=== PATIENT | female | born 1995 | race American Indian/Alaskan Native ===

== ENCOUNTER 2021-02-14 06:35 | Emergency (ER) | payer MEDICAID, OTHER ==
[2021-02-14] MEDS ORDERED: ONDANSETRON 4 MG ODT TAB ONE (08:56)
[2021-02-14] MEDS ORDERED: ONDANSETRON 4 MG ODT TAB PO ONE (08:58)
[2021-02-14 09:00] VITALS: BP 126/85
[2021-02-14 09:31] LABS: Hematocrit 43.1 % (30.3-42.9); Hemoglobin 14.7 gm/dl (10.1-14.3); Mean Corpuscular HGB Conc 34 % (30-34); Mean Corpuscular Volume 89 fl (79-97); Platelet Count 227 K/mm3 (140-440); Red Blood Count 4.86 M/mm3 (3.65-5.03); Red Cell Distribution Width 13.8 % (13.2-15.2)
[2021-02-14 09:48] LABS: Alanine Aminotransferase 13 units/L (7-56); Albumin 5.2 g/dL (3.9-5); Blood Urea Nitrogen 18 mg/dL (7-17); Calcium 10.6 mg/dL (8.4-10.2); Hemolysis Index 12
[2021-02-14 09:52] LABS: BUN/Creatinine Ratio 26
[2021-02-14] MEDS ORDERED: SODIUM CHLORIDE 0.9% 1000 ML 1,000 ML IV ONE (10:54)
[2021-02-14] MEDS ORDERED: ONDANSETRON 4 MG/2 ML INJ IV ONE (10:54)
[2021-02-14] MEDS ORDERED: MORPHINE 4 MG/1 ML INJ IV ONE (10:54)
--- NOTE | 2021-02-14 10:58 | Emergency Department Report ---
ED General Adult HPI - General Chief complaint: Abdominal Pain Stated complaint: CHEST PAIN Time Seen by Provider: 02/14/21 10:30 Source: patient Mode of arrival: Ambulatory Limitations: No Limitations - History of Present Illness Initial comments: Patient is a 25-year-old female presents emergency room with complaints of lower abdominal pain that began last night. She has associated nausea and vomiting. States that she has had constant vomiting since approximately 1 AM this morning. States that she has not been able to tolerate any p.o. intake. Patient states that she had a D&C approximately 3 weeks ago. She states that since the D&C she has been having a foul odor vaginal discharge. She denies any diarrhea, hematochezia, melena, hematemesis, urinary symptoms, itching or burning. Past medical history of diverticulitis. No allergies to medications. - Related Data Previous Rx's Medication Instructions Recorded Last Taken Type Doxycycline Hyclate [Doxycycline 100 mg PO BID 14 Days #28 tab 02/14/21 Unknown Rx Hyclate TAB] Ondansetron [Zofran Odt] 4 mg PO Q8HR PRN #12 tab.rapdis 02/14/21 Unknown Rx metroNIDAZOLE [Flagyl] 500 mg PO BID 14 Days #28 tab 02/14/21 Unknown Rx traMADoL [Ultram 50 MG tab] 50 mg PO Q6HR PRN #12 tablet 02/14/21 Unknown Rx Allergies Allergy/AdvReac Type Severity Reaction Status Date / Time No Known Allergies Allergy Unverified 02/14/21 08:55 ED Review of Systems ROS: Stated complaint: CHEST PAIN Other details as noted in HPI Comment: All other systems reviewed and negative ED Past Medical Hx - Past Medical History Previous Medical History?: Yes Additional medical history: Diverticulitis - Surgical History Past Surgical History?: Yes Additional Surgical History: 01/21/21 - Medications Home Medications: Home Medications Medication Instructions Recorded Confirmed Last Taken Type Doxycycline Hyclate [Doxycycline 100 mg PO BID 14 Days #28 tab 02/14/21 Unknown Rx Hyclate TAB] Ondansetron [Zofran Odt] 4 mg PO Q8HR PRN #12 tab.rapdis 02/14/21 Unknown Rx metroNIDAZOLE [Flagyl] 500 mg PO BID 14 Days #28 tab 02/14/21 Unknown Rx traMADoL [Ultram 50 MG tab] 50 mg PO Q6HR PRN #12 tablet 02/14/21 Unknown Rx ED Physical Exam - General Limitations: No Limitations General appearance: alert, in no apparent distress - Head Head exam: Present: atraumatic, normocephalic - Eye Eye exam: Present: normal appearance - ENT ENT exam: Present: mucous membranes moist - Respiratory Respiratory exam: Present: normal lung sounds bilaterally. Absent: respiratory distress, wheezes, rales, rhonchi, stridor, chest wall tenderness, accessory muscle use, decreased breath sounds, prolonged expiratory - Cardiovascular Cardiovascular Exam: Present: regular rate, normal rhythm, normal heart sounds. Absent: systolic murmur, diastolic murmur, rubs, gallop - GI/Abdominal GI/Abdominal exam: Present: soft, tenderness (LLQ abd pain ), normal bowel sounds. Absent: distended, guarding, rebound, rigid - External exam: Present: normal external exam, other (lining cleaner: EDWARD Pfeiffer). Absent: erythema, swelling, lesions, lacerations, ecchymosis, bleeding Speculum exam: Present: vaginal discharge (clear), cervical discharge (clear). Absent: erythema, vaginal bleeding, foreign body, tissue, laceration Bi-manual exam: Present: normal bi-manual exam. Absent: cervical motion tendernes, adnexal tenderness, adnexal mass - Neurological Exam Neurological exam: Present: alert, oriented X3 - Psychiatric Psychiatric exam: Present: normal affect, normal mood - Skin Skin exam: Present: warm, dry, intact ED Course Vital Signs 02/14/21 08:59 Temperature 97.8 F Pulse Rate 55 L Respiratory 16 Rate Blood Pressure 126/85 [Right] O2 Sat by Pulse 98 Oximetry - EJ/Peripheral Line Arm L Time Out Performed: Yes Indications: other (pt needs IV meds and CT scan, nurse is unavailable due to staffing) Skin Cleansed in Sterile Fashion: Yes Size: 20 Dressing Placed: Tegaderm, tape Patient Tolerated Procedure: well, no complications ED Medical Decision Making - Lab Data Result diagrams: 02/14/21 09:09 02/14/21 09:09 Lab Results 02/14/21 02/14/21 02/14/21 Range/Units 09:09 09:09 09:09 WBC 17.0 H (4.5-11.0) K/mm3 RBC 4.86 (3.65-5.03) M/mm3 Hgb 14.7 H (10.1-14.3) gm/dl Hct 43.1 H (30.3-42.9) % MCV 89 (79-97) fl MCH 30 (28-32) pg MCHC 34 (30-34) % RDW 13.8 (13.2-15.2) % Plt Count 227 (140-440) K/mm3 Add Manual Diff Complete Total Counted 100 Seg Neutrophils % Income Tax Administrator Seg Neuts % (Manual) 92.0 H (40.0-70.0) % Lymphocytes % (Manual) 7.0 L (13.4-35.0) % Monocytes % (Manual) 1.0 (0.0-7.3) % Nucleated RBC % Not Reportable Seg Neutrophils # Man 15.6 H (1.8-7.7) K/mm3 Band Neutrophils # 0.0 K/mm3 Lymphocytes # (Manual) 1.2 (1.2-5.4) K/mm3 Abs React Lymphs (Man) 0.0 K/mm3 Monocytes # (Manual) 0.2 (0.0-0.8) K/mm3 Eosinophils # (Manual) 0.0 (0.0-0.4) K/mm3 Basophils # (Manual) 0.0 (0.0-0.1) K/mm3 Metamyelocytes # 0.0 K/mm3 Myelocytes # 0.0 K/mm3 Promyelocytes # 0.0 K/mm3 Blast Cells # 0.0 K/mm3 WBC Morphology Not Reportable Hypersegmented Neuts Not Reportable Hyposegmented Neuts Not Reportable Hypogranular Neuts Not Reportable Smudge Cells Not Reportable Toxic Granulation Not Reportable Toxic Vacuolation Not Reportable Dohle Bodies Not Reportable Pelger-Huet Anomaly Not Reportable Ganesh Rods Not Reportable Platelet Estimate Consistent w auto Clumped Platelets Not Reportable Plt Clumps, EDTA Not Reportable Large Platelets Not Reportable Giant Platelets Not Reportable Platelet Satelliting Not Reportable Plt Morphology Comment Not Reportable RBC Morphology Normal Dimorphic RBCs Not Reportable Polychromasia Not Reportable Hypochromasia Not Reportable Poikilocytosis Not Reportable Anisocytosis Not Reportable Microcytosis Not Reportable Macrocytosis Not Reportable Spherocytes Not Reportable Pappenheimer Bodies Not Reportable Sickle Cells Not Reportable Target Cells Not Reportable Tear Drop Cells Not Reportable Ovalocytes Not Reportable Helmet Cells Not Reportable [place] Bodies Not Reportable [place] Rings Not Reportable [place] Cells Not Reportable Bite Cells Not Reportable Crenated Cell Not Reportable Elliptocytes Not Reportable Acanthocytes (Spur) Not Reportable Rouleaux Not Reportable Hemoglobin C Crystals Not Reportable Schistocytes Not Reportable Malaria parasites Not Reportable Judson Bodies Not Reportable Hem Pathologist Commnt No Sodium 141 (137-145) mmol/L Potassium 3.7 (3.6-5.0) mmol/L Chloride 100.6 (98-107) mmol/L Carbon Dioxide 21 L (22-30) mmol/L Anion Gap 23 mmol/L BUN 18 H (7-17) mg/dL Creatinine 0.7 (0.6-1.2) mg/dL Estimated GFR > 60 ml/min BUN/Creatinine Ratio 26 % Glucose 138 H (65-100) mg/dL Calcium 10.6 H (8.4-10.2) mg/dL Total Bilirubin 1.10 (0.1-1.2) mg/dL AST 17 (5-40) units/L ALT 13 (7-56) units/L Alkaline Phosphatase 90 (35-129) units/L Troponin T (0.00-0.029) ng/mL Total Protein 8.1 (6.3-8.2) g/dL Albumin 5.2 H (3.9-5) g/dL Albumin/Globulin Ratio 1.8 % HCG, Qual TNR Urine Color (Yellow) Urine Turbidity (Clear) Urine pH (5.0-7.0) Ur [place] (1.003-1.030) Urine Protein (Negative) mg/dL Urine Glucose (UA) (Negative) mg/dL Urine Ketones (Negative) mg/dL Urine Blood (Negative) Urine Nitrite (Negative) Urine Bilirubin (Negative) Urine Urobilinogen (<2.0) mg/dL Ur Leukocyte Esterase (Negative) Urine WBC (Auto) (0.0-6.0) /HPF Urine RBC (Auto) (0.0-6.0) /HPF U Epithel Cells (Auto) (0-13.0) /HPF Urine Mucus /HPF 02/14/21 02/14/21 Range/Units 11:25 Unknown WBC (4.5-11.0) K/mm3 RBC (3.65-5.03) M/mm3 Hgb (10.1-14.3) gm/dl Hct (30.3-42.9) % MCV (79-97) fl MCH (28-32) pg MCHC (30-34) % RDW (13.2-15.2) % Plt Count (140-440) K/mm3 Add Manual Diff Total Counted Seg Neutrophils % Seg Neuts % (Manual) (40.0-70.0) % Lymphocytes % (Manual) (13.4-35.0) % Monocytes % (Manual) (0.0-7.3) % Nucleated RBC % Seg Neutrophils # Man (1.8-7.7) K/mm3 Band Neutrophils # K/mm3 Lymphocytes # (Manual) (1.2-5.4) K/mm3 Abs React Lymphs (Man) K/mm3 Monocytes # (Manual) (0.0-0.8) K/mm3 Eosinophils # (Manual) (0.0-0.4) K/mm3 Basophils # (Manual) (0.0-0.1) K/mm3 Metamyelocytes # K/mm3 Myelocytes # K/mm3 Promyelocytes # K/mm3 Blast Cells # K/mm3 WBC Morphology Hypersegmented Neuts Hyposegmented Neuts Hypogranular Neuts Smudge Cells Toxic Granulation Toxic Vacuolation Dohle Bodies Pelger-Huet Anomaly Ganesh Rods Platelet Estimate Clumped Platelets Plt Clumps, EDTA Large Platelets Giant Platelets Platelet Satelliting Plt Morphology Comment RBC Morphology Dimorphic RBCs Polychromasia Hypochromasia Poikilocytosis Anisocytosis Microcytosis Macrocytosis Spherocytes Pappenheimer Bodies Sickle Cells Target Cells Tear Drop Cells Ovalocytes Helmet Cells [place]illi[place] Bodies [place] Rings [place] Cells Bite Cells Crenated Cell Elliptocytes Acanthocytes (Spur) Rouleaux Hemoglobin C Crystals Schistocytes Malaria parasites Judson Bodies Hem Pathologist Commnt Sodium (137-145) mmol/L Potassium (3.6-5.0) mmol/L Chloride (98-107) mmol/L Carbon Dioxide (22-30) mmol/L Anion Gap mmol/L BUN (7-17) mg/dL Creatinine (0.6-1.2) mg/dL Estimated GFR ml/min BUN/Creatinine Ratio % Glucose (65-100) mg/dL Calcium (8.4-10.2) mg/dL Total Bilirubin (0.1-1.2) mg/dL AST (5-40) units/L ALT (7-56) units/L Alkaline Phosphatase (35-129) units/L Troponin T < 0.010 (0.00-0.029) ng/mL Total Protein (6.3-8.2) g/dL Albumin (3.9-5) g/dL Albumin/Globulin Ratio % HCG, Qual Urine Color Yellow (Yellow) Urine Turbidity Slightly-cloudy (Clear) Urine pH 5.0 (5.0-7.0) Ur [place] 1.024 (1.003-1.030) Urine Protein 100 mg/dl (Negative) mg/dL Urine Glucose (UA) 50 (Negative) mg/dL Urine Ketones 80 (Negative) mg/dL Urine Blood Neg (Negative) Urine Nitrite Neg (Negative) Urine Bilirubin Neg (Negative) Urine Urobilinogen < 2.0 (<2.0) mg/dL Ur Leukocyte Esterase Neg (Negative) Urine WBC (Auto) 2.0 (0.0-6.0) /HPF Urine RBC (Auto) 1.0 (0.0-6.0) /HPF U Epithel Cells (Auto) 11.0 (0-13.0) /HPF Urine Mucus 2+ /HPF - Radiology Data Radiology results: report reviewed Ordering Physician: HOLLY MCCOY Date of Service: 02/14/21 Procedure(s): CT abdomen pelvis w con Accession Number(s): [id number] cc: HOLLY MCCOY CT ABDOMEN AND PELVIS WITH CONTRAST INDICATION: LLQ abd pain, n/v, elevated WBC, recent DNC OMNI 300 100ML. TECHNIQUE: Axial CT images were obtained through the abdomen and pelvis after 100 cc IV contrast. All CT scans at this location are performed using CT dose reduction for ALARA by means of automated exposure control. COMPARISON: None available. FINDINGS: LOWER CHEST: No significant abnormality. LIVER: No significant abnormality. GALLBLADDER: No significant abnormality. BILE DUCTS: No significant abnormality. PANCREAS: No significant abnormality. SPLEEN: No significant abnormality. ADRENALS: No significant abnormality. RIGHT KIDNEY and URETER: No significant abnormality. LEFT KIDNEY and URETER: No significant abnormality. STOMACH and SMALL BOWEL: No significant abnormality. COLON: No significant abnormality. APPENDIX: No significant abnormality. PERITONEUM: No free fluid. No free air. No fluid collection. LYMPH NODES: No significant adenopathy. AORTA and ARTERIES: No significant abnormality. IVC and VEINS: No significant abnormality. URINARY BLADDER: No significant abnormality. REPRODUCTIVE ORGANS: 1.4 cm right ovarian follicular cyst. Small amount of fluid within the endometrial canal. No endometrial gas. ADDITIONAL FINDINGS: None. SKELETAL SYSTEM: No significant abnormality. IMPRESSION: 1. Small amount of endometrial fluid status post reported recent D and C. Pelvic ultrasound may be useful for further evaluation. 2. No acute inflammatory process or bowel obstruction Signer Name: Kedar Obando MD Signed: 02/14/2021 11:32 AM Workstation Name: [id number] Transcribed By: TL Dictated By: Kedar Obando MD Electronically Authenticated By: Kedar Obando MD Signed Date/Time: 02/14/21 1132 DD/ 1128 TD/TT: Print Ordering Physician: HOLLY MCCOY Date of Service: 02/14/21 Procedure(s): US transvaginal Accession Number(s): [id number] cc: HOLLY MCCOY ULTRASOUND PELVIS INDICATION: abd pain, WBC 17k, DNC 3 weeks ago. TECHNIQUE: Transabdominal and Transvaginal. Duplex Color Doppler used: Yes. COMPARISON: CT pelvis today FINDINGS: Uterus: Present. Size: 10.0 x 3.5 x 4.3 cm. Endometrial complex: Thickened and echogenic with small amount of endometrial fluid. measuring 11 mm. Mass lesions: None. Additional findings: None. Right Ovary -- Normal. Blood flow: Normal. Cyst or mass: 2.5 x 1.3 x 1.2 cm right ovarian follicular cyst Left Ovary--not visualized secondary to bowel gas Urinary Bladder: Normal. Free Fluid: None. Additional Findings: None. IMPRESSION: 1. Thickened endometrium with small amount of endometrial fluid. Mild endom etritis cannot be excluded. 2. 2.5 cm right ovarian follicular cyst. No free fluid. Signer Name: Kedar Obando MD Signed: 02/14/2021 1:15 PM Workstation Name: [id number] Transcribed By: TL Dictated By: Kedar Obando MD Electronically Authenticated By: Kedar Obando MD Signed Date/Time: 02/14/211314 DD/ 11 TD/TT: Print Cancel - Medical Decision Making Patient is a 25-year-old female presents emergency room with complaints of lower abdominal pain that began last night. She has associated nausea and vomiting. States that she has had constant vomiting since approximately 1 AM this morning. States that she has not been able to tolerate any p.o. intake. Patient states that she had a D&C approximately 3 weeks ago. She states that since the D&C she has been having a foul odor vaginal discharge. She denies any diarrhea, hematochezia, melena, hematemesis, urinary symptoms, itching or burning. Past medical history of diverticulitis. No allergies to medications. Vitals are stable. On exam patient has left lower quadrant tenderness palpation, no guarding, no rebound, no rigidity, no bowel sounds, no peritoneal signs, there is clear vaginal/cervical discharge on chaperoned pelvic examination, no CMT, no adnexal masses or tenderness. Labs significant for elevated white blood cell count of 17,000 and elevated blood glucose at 138. UA shows evidence of dehydration, no signs of UTI. Wet prep is negative. G/C swab sent. CT abdomen pelvis with IV contrast: 1. Small amount of endometrial fluid status post reported recent D and C. Pelvic ultrasound may be useful for further evaluation. 2. No acute inflammatory process or bowel obstruction. Pelvic ultrasound: 1. Thickened endometrium with small amount of endometrial fluid. Mild endometritis cannot be excluded. 2. 2.5 cm right ovarian follicular cyst. No free fluid. Patient given medications while in the emergency department with improvement of her symptoms. She was able to tolerate p.o. intake without difficulty. She had no further episodes of vomiting. Patient given ceftriaxone while in the emergency department. Discussed case with Dr. Viji Solorzano, ER attending who advised to have patient follow-up outpatient and to give prescriptions to treat endometritis and advised that does not need admission at this time. Patient given prescription for medications. Advised patient Take medication as prescribed to completion. Please follow-up with a primary care doctor. Please discuss with your primary care doctor about the elevation in your blood sugar during today's visit. Eat a low sugar/low carbohydrate diet. Follow-up with the clinic which performed your procedure. Return to emergency room for any new or worsening symptoms. Critical care attestation.: If time is entered above; I have spent that time in minutes in the direct care of this critically ill patient, excluding procedure time. ED Disposition Clinical Impression: Lower abdominal pain, Endometritis, Elevated blood sugar level Leukocytosis Qualifiers: Leukocytosis type: unspecified Qualified Code(s): D72.829 - Elevated white blood cell count, unspecified Ovarian cyst Qualifiers: Laterality: right Qualified Code(s): N83.201 - Unspecified ovarian cyst, right side Disposition: DC- TO HOME OR SELFCARE Is pt being admited?: No Does the pt Need Aspirin: No Condition: Stable Instructions: Endometritis, Abdominal Pain (ED) Additional Instructions: Take medication as prescribed to completion. Please follow-up with a primary care doctor. Please discuss with your primary care doctor about the elevation in your blood sugar during today's visit. Eat a low sugar/low carbohydrate diet. Follow-up with the clinic which performed your procedure. Return to emergency room for any new or worsening symptoms. Prescriptions: Doxycycline Hyclate [Doxycycline Hyclate TAB] 100 mg PO BID 14 Days #28 tab metroNIDAZOLE [Flagyl] 500 mg PO BID 14 Days #28 tab traMADoL [Ultram 50 MG tab] 50 mg PO Q6HR PRN #12 tablet PRN Reason: Pain , Severe (7-10) Ondansetron [Zofran Odt] 4 mg PO Q8HR PRN #12 tab.rapdis PRN Reason: nausea/vomiting Referrals: [facility] [Provider Group] - 2-3 Days HERB COWAN MD [Staff Physician] - 2-3 Days your, clinic [Other] - 2-3 Days Time of Disposition: 14:48 Print Language: SLOVENIAN
--- NOTE | 2021-02-14 11:36 | Cat Scan Report ---
CT ABDOMEN AND PELVIS WITH CONTRAST INDICATION: LLQ abd pain, n/v, elevated WBC, recent DNC OMNI 300 100ML. TECHNIQUE: Axial CT images were obtained through the abdomen and pelvis after 100 cc IV contrast. All CT scans at this location are performed using CT dose reduction for ALARA by means of automated exposure contr ol. COMPARISON: None available. FINDINGS: LOWER CHEST: No significant abnormality. LIVER: No significant abnormality. GALLBLADDER: No significant abnormality. BILE DUCTS: No significant abnormality. PANCREAS: No significant abnormality. SPLEEN: No significant abnormality. ADRENALS: No significant abnormality. RIGHT KIDNEY and URETER: No significant abnormality. LEFT KIDNEY and URETER: No significant abnormality. STOMACH and SMALL BOWEL: No significant abnormality. COLON: No significant abnormality. APPENDIX: No significant abnormality. PERITONEUM: No free fluid. No free air. No fluid collection. LYMPH NODES: No significant adenopathy. AORTA and ARTERIES: No significant abnormality. IVC and VEINS: No significant abnormality. URINARY BLADDER: No significant abnormality. REPRODUCTIVE ORGANS: 1.4 cm right ovarian follicular cyst. Small amount of fluid within the endometri al canal. No endometrial gas. ADDITIONAL FINDINGS: None. SKELETAL SYSTEM: No significant abnormality. IMPRESSION: 1. Small amount of endometrial fluid status post reported recent D and C. Pelvic ultrasound may be us eful for further evaluation. 2. No acute inflammatory process or bowel obstruction Signer Name: Kedar Obando MD Signed: 02/14/2021 11:32 AM Workstation Name: [id number]
[2021-02-14 11:37] LABS: Total Cells Counted 100
[2021-02-14 11:38] LABS: Platelet Estimate Consistent w Auto; RBC Morphology Normal
[2021-02-14 13:03] LABS: Bilirubin,Urine NEG (Negative); Blood,Urine NEG (Negative); Color,Urine Yellow (Yellow); Mucus,Urine 2+ /HPF; Urobilinogen,Urine < 2.0 mg/dL (<2.0)
--- NOTE | 2021-02-14 13:19 | Ultrasound Report ---
ULTRASOUND PELVIS INDICATION: abd pain, WBC 17k, DNC 3 weeks ago. TECHNIQUE: Transabdominal and Transvaginal. Duplex Color Doppler used: Yes. COMPARISON: CT pelvis today FINDINGS: Uterus: Present. Size: 10.0 x 3.5 x 4.3 cm. Endometrial complex: Thickened and echogenic with small amount of endometrial fluid. measuring 11 mm. Mass lesions: None. Additional findings: None. Right Ovary -- Normal. Blood flow: Normal. Cyst or mass: 2.5 x 1.3 x 1.2 cm right ovarian follicular cyst Left Ovary--not visualized secondary to bowel gas Urinary Bladder: Normal. Free Fluid: None. Additional Findings: None. IMPRESSION: 1. Thickened endometrium with small amount of endometrial fluid. Mild endometritis cannot be excluded . 2. 2.5 cm right ovarian follicular cyst. No free fluid. Signer Name: Kedar Obando MD Signed: 02/14/2021 1:15 PM Workstation Name: [id number]
[2021-02-14] MEDS ORDERED: AZITHROMYCIN 250 MG TAB PO ONE (14:44)
--- NOTE | 2021-02-15 14:30 | Electrocardiograph Report ---
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
--- NOTE | 2021-02-15 14:31 | Electrocardiograph Report ---
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
== END 2021-02-14 16:30 | disposition home or self-care (01) ==
LOC: ED 06:35
DX: R10.30 Lower abdominal pain, unspecified (principal); R73.9 Hyperglycemia, unspecified; D72.829 Elevated white blood cell count, unspecified; N83.201 Unspecified ovarian cyst, right side
CPT/HCPCS: 36415; 74177; 76830; 76856; 80053; 81001; 84484; 85007; 85025; 87210; 87591; 93005; 96361; 96365; 96375; 99285; J0696; J2270; J2405; J7030; Q9967; 99284; Q0162